=== PATIENT | female | born 1985 | race Caucasian/White ===

== ENCOUNTER 2017-09-04 06:24 | Inpatient (IN) ==
[2017-09-04] MEDS ORDERED: BUTORPHANOL 2 MG/ML VIAL IV PRN (07:13)
[2017-09-04] MEDS ORDERED: MEPERIDINE 50 MG/1 ML VIAL IV PRN (07:13)
[2017-09-04] MEDS ORDERED: BUTORPHANOL 1 MG/ML VIAL IV PRN (07:13)
[2017-09-04] MEDS ORDERED: ONDANSETRON 4 MG/2 ML VIAL IV PRN ×3 (07:13→22:39)
[2017-09-04] MEDS ORDERED: OXYTOCIN/LR 20 UNIT/1,000 ML BAG IV SCH (07:30)
[2017-09-04] MEDS: LACTATED RINGERS 1,000 ML IV SCH ×3 (07:30→17:22)
[2017-09-04 07:36] LABS: Basophils % 0.2 % (0.0-0.8); Eosinophils % 0.6 % (0.00-10.9); Hematocrit 36.7 VOL% (35.7-47.0); Hemoglobin 12.7 GM/DL (12.0-16.0); Immature Granulocytes % 0.8 %; Immature Granulocytes Absolute 0.04 #; Lymphocytes # 1.3 10*3/uL (1.4-4.0); Lymphocytes % 25.7 % (21.3-54.2); Mean Corpuscular HGB Conc 34.6 GM/DL (32-36); Mean Corpuscular Hemoglobin 31 PG (27-34); Mean Corpuscular Volume 90.4 FL (87-102); Monocytes # 0.4 10*3/uL (0.11-0.8); Monocytes % 7.5 % (1.7-12.7); Neutrophils # 3.2 10*3/uL (1.4-7.4); Neutrophils % 65.2 % (38.7-73.9); Platelet Count 180 T/CUMM (130-400); Red Blood Count 4.06 MC/CUMM (3.8-5.5); Red Cell Distribution Width 12.8 % (9.3-17.3); White Blood Count 4.9 T/CUMM (4-12)
[2017-09-04 08:02] LABS: Alanine Aminotransferase 20 U/L (13-56); Albumin 2.5 G/DL (3.4-5.0); Alkaline Phosphatase 133 U/L (45-117); Aspartate Amino Transferase 15 U/L (0-37); Bilirubin,Total < 0.39 MG/DL (0.2-1.0); Blood Urea Nitrogen 7 MG/DL (7-18); Calcium 8.1 MG/DL (8.5-10.1); Glucose 84 MG/DL (74-106); Osmolality,Calculated 277.3 MOS/KG (273-304); Potassium 3.9 MMOL/L (3.5-5.1); Sodium 141 MMOL/L (136-145); Total Protein 5.3 G/DL (6.4-8.3); Uric Acid 5.2 MG/DL (2.6-6.0)
[2017-09-04] MEDS ORDERED: ONDANSETRON 4 MG/2 ML VIAL IV ONE (12:52)
[2017-09-04] MEDS ORDERED: PROMETHAZINE 25 MG/1 ML VIAL IM ONE (12:52)
[2017-09-04] MEDS ORDERED: FAMOTIDINE 20 MG/2 ML VIAL IV ONE (12:52)
[2017-09-04] MEDS ORDERED: diphenhydrAMINE 50 MG/1 ML VIAL IV PRN ×3 (12:52→22:35)
[2017-09-04] MEDS ORDERED: CITRIC ACID/SODIUM CITRATE 30 ML UDCUP PO ONE (12:52)
[2017-09-04] MEDS ORDERED: hydrOXYzine HCL 25 MG/1 ML VIAL IM PRN ×2 (12:52→22:35)
[2017-09-04] MEDS ORDERED: fentaNYL 2 MCG/ROPIV 0.2% EPID 150 ML EPIDURAL SCH (13:00)
[2017-09-04] MEDS: ePHEDrine 50 MG/ML AMP IV PRN ×2 (14:10→14:19)
[2017-09-04] MEDS ORDERED: OXYTOCIN 10 UNIT/ML VIAL ONE (20:58)
[2017-09-04] MEDS ORDERED: CITRIC ACID/SODIUM CITRATE 30 ML UDCUP ONE (21:00)
[2017-09-04] MEDS ORDERED: OXYTOCIN 10 UNIT/ML VIAL IM ONE (21:10)
[2017-09-04] MEDS ORDERED: ceFAZolin 2,000 MG in PREMIX 1 EACH IV ONE (21:15)
[2017-09-04] MEDS ORDERED: OXYTOCIN/LR 30 UNIT/1,000 ML BAG IV ONE (21:15)
[2017-09-04] MEDS ORDERED: TERBUTALINE 1 MG/1 ML VIAL SUBCUT ONE ×2 (21:17→22:00)
[2017-09-04 21:56] LABS: Cord Arterial Blood HCO3 23.6 MMOL/L
[2017-09-04 22:02] LABS: Cord Venous Blood HCO3 17.8 MMOL/L; Cord Venous Blood PCO2 55.9 MMHG; Cord Venous Blood PO2 12.2
[2017-09-04] MEDS ORDERED: PROMETHAZINE 25 MG/1 ML VIAL ONE (22:24)
[2017-09-04] MEDS ORDERED: MORPHINE 10 MG/10 ML VIAL ONE (22:24)
[2017-09-04] MEDS ORDERED: ONDANSETRON 4 MG/2 ML VIAL ONE (22:24)
[2017-09-04] MEDS ORDERED: SODIUM BICARBONATE 10 MEQ/10 ML SYRINGE IV ONE (22:24)
[2017-09-04] MEDS ORDERED: LIDOCAINE MPF 2% /EPI 20 ML VIAL ONE (22:25)
[2017-09-04] MEDS ORDERED: ACETAMINOPHEN 1,000 MG/100 ML VIAL IV ONE (22:25)
[2017-09-04] MEDS ORDERED: LACTATED RINGERS 1,000 ML IV ONE (22:25)
[2017-09-04] MEDS ORDERED: PHENYLEPHRINE 1 MG/10 ML SYRINGE IV ONE (22:25)
[2017-09-04] MEDS ORDERED: MORPHINE 10 MG/1 ML VIAL IV PRN (22:37)
[2017-09-04] MEDS ORDERED: OXYTOCIN/LR 20 UNIT/1,000 ML BAG IV ONE (22:39)
[2017-09-04] MEDS ORDERED: MAGNESIUM HYDROXIDE SUSP 30 ML UDCUP PO PRN (22:39)
[2017-09-04] MEDS ORDERED: ACETAMINOPHEN 325 MG TABLET PO PRN (22:39)
[2017-09-04] MEDS ORDERED: SIMETHICONE CHEW 80 MG TABLET PO PRN (22:39)
[2017-09-04] MEDS ORDERED: LACTATED RINGERS 1,000 ML IV SCH (23:00)
[2017-09-04] MEDS ORDERED: SODIUM CHLORIDE 0.9% 1,000 ML IV SCH (23:00)
[2017-09-04] MEDS ORDERED: RHO(D) IMMUNE GLOBULIN 300 MCG SYRINGE IM ONE (23:00)
[2017-09-05] MEDS ORDERED: diphenhydrAMINE 50 MG/1 ML VIAL IV PRN ×2 (01:34→03:19)
[2017-09-05] MEDS ORDERED: MEPERIDINE 25 MG/1 ML VIAL IV PRN (02:18)
[2017-09-05] MEDS ORDERED: hydrOXYzine HCL 25 MG/1 ML VIAL IM PRN (03:18)
[2017-09-05] MEDS: ceFAZolin 1,000 MG in SYRINGE 1 EACH IV SCH ×2 (05:49→13:26)
[2017-09-05] MEDS: IBUPROFEN 800 MG TABLET PO PRN ×2 (06:02→22:23)
[2017-09-05 06:31] LABS: Hematocrit 32.6 VOL% (35.7-47.0); Hemoglobin 11.3 GM/DL (12.0-16.0); Immature Granulocytes % 0.4 %; Immature Granulocytes Absolute 0.03 #; Lymphocytes # 0.9 10*3/uL (1.4-4.0); Lymphocytes % 12.2 % (21.3-54.2); Mean Corpuscular HGB Conc 34.7 GM/DL (32-36); Mean Corpuscular Hemoglobin 31 PG (27-34); Mean Corpuscular Volume 90.6 FL (87-102); Mean Platelet Volume 10.2 FL (9.6-12.0); Monocytes # 0.4 10*3/uL (0.11-0.8); Monocytes % 4.7 % (1.7-12.7); Neutrophils # 6.4 10*3/uL (1.4-7.4); Neutrophils % 82.7 % (38.7-73.9); Platelet Count 146 T/CUMM (130-400); Red Cell Distribution Width 12.6 % (9.3-17.3); White Blood Count 7.7 T/CUMM (4-12)
[2017-09-05] MEDS: LACTATED RINGERS 1,000 ML IV SCH ×2 (08:45→08:48)
[2017-09-05] MEDS: MULTIVITAMIN (PRENATAL) TABLET PO SCH (10:10)
[2017-09-05] MEDS: DOCUSATE SODIUM 100 MG CAPSULE PO SCH ×2 (10:10→20:54)
[2017-09-06] MEDS: IBUPROFEN 800 MG TABLET PO PRN (07:07)
[2017-09-06 07:41] VITALS: BP 111/83
[2017-09-06] MEDS: MULTIVITAMIN (PRENATAL) TABLET PO SCH (08:40)
[2017-09-06] MEDS: DOCUSATE SODIUM 100 MG CAPSULE PO SCH (08:40)
[2017-09-06] MEDS ORDERED: DIPH/TET/ACEL PERT BOOSTER VACCINE 0.5 ML VIAL IM ONE (11:05)
== END 2017-09-06 18:45 | disposition home or self-care (01) | DRG 540 ==
LOC: N.LDOUT 06:24 → N.LD 06:28 → N.OB 09-05 01:05
PROVIDERS: ADMIT Obstetrics & Gynecology; ATTEND Obstetrics & Gynecology
PROC: LDCSECT (ICD-10-PCS; 2017-09-04 21:30)